=== PATIENT | male | born 1985 | race Caucasian/White ===

== ENCOUNTER → 2016-11-15 | Outpatient (CLI) | payer OTHER ==
[~2016-11-15] MED LIST: ALBUTEROL0.09 MG/A1 IH; BYSTOLIC10 MG PO; MOTRIN 800800 MG/TAB PO; PROTONIX20 MG PO; ZANTAC 150150 MG PO
== END ==
LOC: COL.RAD 07:19
DX: M54.6 Pain in thoracic spine (principal)

== ENCOUNTER → 2018-03-22 | Outpatient (CLI) | payer OTHER | LOC: COL.RAD 07:52 | DX: R11.0 Nausea (principal) | CPT/HCPCS: A9541 ==

== ENCOUNTER 2018-03-27 09:17 | Day surgery (SDC) | payer OTHER ==
[~2018-03-27] VITALS: Ht 177.8 cm; Wt 84.7 kg
[2018-03-27] MEDS ORDERED: PRINIVIL10 MG PO (09:34)
[2018-03-27] MEDS ORDERED: TENORMIN 5050 MG/TAB PO (09:34)
[2018-03-27] MEDS ORDERED: XIFAXAN550 MG PO (09:35)
[2018-03-27 10:04] VITALS: BP 132/92; PULSE 96; TEMP 97.9
[2018-03-27] MEDS ORDERED: ZANTAC 150MG T150 MG PO (11:15)
[2018-03-27 11:20] VITALS: BP 125/80; PULSE 82; TEMP 98.1
[2018-03-27 11:35] VITALS: BP 114/80; PULSE 90
[2018-03-27 11:50] VITALS: BP 114/83; PULSE 81
== END 2018-03-27 12:00 | disposition home or self-care (01) ==
LOC: SDCO 09:17
DX: K29.30 Chronic superficial gastritis without bleeding (principal); K29.80 Duodenitis without bleeding; K64.0 First degree hemorrhoids
CPT/HCPCS: J2250; J3010; J7030

== ENCOUNTER → 2019-05-08 | Outpatient (CLI) | payer BC ==
[~2019-05-08] MED LIST changes: +PRINIVIL10 MG PO; +TENORMIN 5050 MG/TAB PO; +XIFAXAN550 MG PO; +ZANTAC 150MG T150 MG PO
== END ==
LOC: COL.VAS 10:39
DX: R07.89 Other chest pain (principal)

== ENCOUNTER → 2022-02-11 | Outpatient (CLI) | payer OTHER | LOC: COL.RAD 07:59 | DX: M25.532 Pain in left wrist (principal) ==